=== PATIENT | female | born 1945 | race Caucasian/White ===

== ENCOUNTER 2016-12-07 15:32 | Emergency (ER) | payer OTHER ==
[~2016-12-07 15:32] MED LIST: ASPIR 8181 MG PO; ATENOLOL50 MG PO; CYCLOBENZAPRINE10 MG PO; DIOVAN40 MG PO; ESCITALOPRAM10 M1 PO; ESG PO; FAMOTIDINE20 MG PO; GLU5 PO; HUMULIN R100 U/1 M1 SC; LEVEMIR100 U/M1; LEVEMIR100 U/M1 SC; LEVOFLOXACIN750 M1 PO; LEXAPRO10 MG PO; LIPI10 PO; LOR PO; MAG PO; METFORMIN HCL1000 MG PO; MONTELUKAST SOD10 M1 PO; MORPHINE SULFAT15 MG PO; MYCLUD SS; MYLANTA II/MAAL30 M1 PO; NPHOS PO; PHE25I IV; VALSARTAN80 MG PO; ZES20 PO; ZOLPIDEM10 M1 PO
[2016-12-07 15:42] VITALS: BP 138/76
== END 2016-12-07 17:10 | disposition home or self-care (01) ==
LOC: ED 15:32
DX: K52.9 Noninfective gastroenteritis and colitis, unspecified (principal); E11.9 Type 2 diabetes mellitus without complications; Z88.0 Allergy status to penicillin; Z88.1 Allergy status to other antibiotic agents; Z88.8 Allergy status to other drugs, medicaments and biological substances

== ENCOUNTER 2017-10-11 15:41 | Inpatient (IN) | payer OTHER ==
[~2017-10-11] VITALS: Ht 152.4 cm; Wt 60.1 kg
[2017-10-11 15:55] VITALS: Ht 152.4 cm; Wt 60.1 kg
[2017-10-11 17:42] LABS: BASOPHIL % 0.6 % (0-2); PLATELET COUNT 207 x10^3mcL (130-400); RED CELL DISTRIBUTION WIDTH 13.1 % (11.5-14.5)
[2017-10-11 17:55] LABS: CALCIUM 8.1 mg/dL (8.5-10.1); CARBON DIOXIDE 25.3 mmol/L (21-32); CHLORIDE SERUM 106 mmol/L (98-107); CREATININE SERUM 1.2 mg/dL (0.6-1.0); GLUCOSE SERUM 90 mg/dL (74-106); POTASSIUM SERUM 5.4 mmol/L (3.5-5.1); SODIUM SERUM 137 mmol/L (136-145)
[2017-10-11 18:00] LABS: ALBUMIN 3.5 g/dL (3.4-5.0); ALKALINE PHOSPHATASE 69 U/L (46-116); ALT/SGPT 17 U/L (14-59); AST/SGOT 16 U/L (15-37); TOTAL PROTEIN, SERUM 6.3 g/dL (6.4-8.2)
[2017-10-11 18:02] LABS: CHOLESTEROL 81 mg/dL (<200)
[2017-10-11 18:25] LABS: microscopic required? YES; urine erythrocyte NEGATIVE (NEGATIVE)
[2017-10-11] MEDS ORDERED: NEU300 PO (18:52)
[2017-10-11 19:30] VITALS: BP 135/71
[2017-10-11 19:30] LABS: CHOLESTEROL/HDL RATIO 1.6; MAGNESIUM 1.7 mg/dL (1.8-2.4); PHOSPHOROUS 4.2 mg/dL (2.5-4.9)
[2017-10-11 19:36] LABS: T3 TOTAL 0.74 ng/mL
[2017-10-11 19:45] LABS: AMPHETAMINE QUAL UR NONE DETECTED (NEG <=1000)
[2017-10-11] MEDS ORDERED: LEVEMIR100 U/M1 SC (19:50)
[2017-10-11] MEDS ORDERED: GABAPENTIN600 M1 PO (19:51)
[2017-10-11 20:07] LABS: FREE T4 0.81 ng/dL (0.76-1.46); T4(THYROXINE) 4.9 ug/dL (4.7-13.3)
[2017-10-11 20:24] LABS: FREE THYROXINE INDEX 1.7 ug/dL (1.4-4.5)
[2017-10-11 20:46] LABS: IRON 76 ug/dL (50-170)
[2017-10-11 20:47] LABS: TOTAL IRON BINDING CAPACITY 233 ug/dL (250-450)
[2017-10-11 21:12] VITALS: BP 149/59
[2017-10-11 21:18] LABS: RED BLOOD CELLS 3.33 M/mm3 (4.10-5.10)
[2017-10-12 04:39] VITALS: BP 124/67
[2017-10-12 06:19] LABS: BASOPHIL % 0.8 % (0-2); PLATELET COUNT 182 x10^3mcL (130-400)
[2017-10-12 06:44] LABS: CALCIUM 7.9 mg/dL (8.5-10.1); CARBON DIOXIDE 26.7 mmol/L (21-32); CHLORIDE SERUM 105 mmol/L (98-107); CREATININE SERUM 1.1 mg/dL (0.6-1.0); GLUCOSE SERUM 206 mg/dL (74-106); MAGNESIUM 2.2 mg/dL (1.8-2.4); POTASSIUM SERUM 5.1 mmol/L (3.5-5.1); SODIUM SERUM 138 mmol/L (136-145)
[2017-10-12 09:11] VITALS: BP 134/70
[2017-10-12 13:16] VITALS: BP 134/86
[2017-10-12 17:20] VITALS: BP 151/76
[2017-10-12 20:48] VITALS: BP 123/54
[2017-10-13 06:42] VITALS: BP 141/79
[2017-10-13 08:14] LABS: BASOPHIL % 0.4 % (0-2); PLATELET COUNT 224 x10^3mcL (130-400); RED CELL DISTRIBUTION WIDTH 12.9 % (11.5-14.5)
[2017-10-13 08:37] LABS: CALCIUM 8.6 mg/dL (8.5-10.1); CARBON DIOXIDE 26.1 mmol/L (21-32); CHLORIDE SERUM 107 mmol/L (98-107); GLUCOSE SERUM 137 mg/dL (74-106); MAGNESIUM 1.8 mg/dL (1.8-2.4); PHOSPHOROUS 3.7 mg/dL (2.5-4.9); POTASSIUM SERUM 4.4 mmol/L (3.5-5.1); SODIUM SERUM 140 mmol/L (136-145)
[2017-10-13 09:30] VITALS: BP 116/66
[2017-10-13 12:54] VITALS: BP 160/84
[2017-10-13 16:59] VITALS: BP 153/91
[2017-10-13 21:15] VITALS: BP 158/96
[2017-10-14 06:04] VITALS: BP 134/91
[2017-10-14 06:28] LABS: BASOPHIL % 0.5 % (0-2); PLATELET COUNT 236 x10^3mcL (130-400); RED CELL DISTRIBUTION WIDTH 13.1 % (11.5-14.5)
[2017-10-14 06:46] LABS: CALCIUM 8.6 mg/dL (8.5-10.1); CARBON DIOXIDE 25.6 mmol/L (21-32); CHLORIDE SERUM 107 mmol/L (98-107); CREATININE SERUM 0.9 mg/dL (0.6-1.0); GLUCOSE SERUM 145 mg/dL (74-106); MAGNESIUM 1.6 mg/dL (1.8-2.4); PHOSPHOROUS 3.1 mg/dL (2.5-4.9); POTASSIUM SERUM 4.5 mmol/L (3.5-5.1); SODIUM SERUM 140 mmol/L (136-145)
[2017-10-14 09:11] VITALS: BP 172/90
[2017-10-14 12:26] VITALS: BP 150/81
[2017-10-14 17:44] VITALS: BP 136/92
[2017-10-14 21:23] VITALS: BP 156/90
[2017-10-15 05:20] VITALS: BP 123/70
[2017-10-15 06:34] LABS: CALCIUM 8.1 mg/dL (8.5-10.1); CHLORIDE SERUM 104 mmol/L (98-107); CREATININE SERUM 1.1 mg/dL (0.6-1.0); GLUCOSE SERUM 210 mg/dL (74-106); MAGNESIUM 1.7 mg/dL (1.8-2.4); POTASSIUM SERUM 4.3 mmol/L (3.5-5.1); SODIUM SERUM 136 mmol/L (136-145)
[2017-10-15 08:12] LABS: BASOPHIL % 0.5 % (0-2); PLATELET COUNT 215 x10^3mcL (130-400); RED CELL DISTRIBUTION WIDTH 13.2 % (11.5-14.5)
[2017-10-15 08:59] VITALS: BP 123/69
[2017-10-15] MEDS ORDERED: IMODIUM A-D2 M3 PO (10:54)
[2017-10-15 11:04] VITALS: BP 123/69
== END 2017-10-15 12:04 | disposition home or self-care (01) | DRG 73 ==
LOC: ED 15:41 → DU 18:44
PROVIDERS: Emergency Medicine; Family Medicine; Family Medicine Sports Medicine
DX: G90.8 Other disorders of autonomic nervous system (principal); N17.0 Acute kidney failure with tubular necrosis; N39.0 Urinary tract infection, site not specified; D64.9 Anemia, unspecified; E87.5 Hyperkalemia; K52.9 Noninfective gastroenteritis and colitis, unspecified; E83.42 Hypomagnesemia; E11.42 Type 2 diabetes mellitus with diabetic polyneuropathy; F41.9 Anxiety disorder, unspecified; Z98.51 Tubal ligation status; Z88.0 Allergy status to penicillin; Z88.8 Allergy status to other drugs, medicaments and biological substances; Z80.49 Family history of malignant neoplasm of other genital organs; Z80.0 Family history of malignant neoplasm of digestive organs; Z87.891 Personal history of nicotine dependence
CPT/HCPCS: 82962; 83880; 84439; 87046; 87046-59; 97110-GP; 97116-GP; 97530-GP; G0378; G0480; J1815; J1956; J3475; J7030; Q0092

== ENCOUNTER 2018-12-31 21:50 | Inpatient (IN) | payer OTHER ==
[~2018-12-31] VITALS: Ht 152.4 cm; Wt 55.0 kg
[~2018-12-31 21:50] MED LIST changes: +GABAPENTIN600 M1 PO; +IMODIUM A-D2 M3 PO; +NEU300 PO
--- NOTE | 2018-12-31 22:33 | NUR ---
EMT AT BEDSIDE FOR EKG
--- NOTE | 2018-12-31 22:52 | NUR ---
LAB AT BEDSIDE FOR BLOOD DRAW
[2018-12-31 23:12] LABS: BASOPHIL % 0.2 % (0-2); PLATELET COUNT 286 x10^3mcL (130-400); RED CELL DISTRIBUTION WIDTH 12.8 % (11.5-14.5)
[2018-12-31 23:15] LABS: CALCIUM 9.6 mg/dL (8.5-10.1); CARBON DIOXIDE 24.1 mmol/L (21-32); CHLORIDE SERUM 98 mmol/L (98-107); CREATININE SERUM 1.4 mg/dL (0.6-1.0); GLUCOSE SERUM 273 mg/dL (74-106); POTASSIUM SERUM 3.5 mmol/L (3.5-5.1); SODIUM SERUM 137 mmol/L (136-145)
[2018-12-31 23:29] LABS: ALBUMIN 4.2 g/dL (3.4-5.0); ALKALINE PHOSPHATASE 57 U/L (46-116); ALT/SGPT 19 U/L (14-59); AST/SGOT 19 U/L (15-37); BILIRUBIN TOTAL 0.9 mg/dL (0.20-1.00); TOTAL PROTEIN, SERUM 7.7 g/dL (6.4-8.2)
--- NOTE | 2018-12-31 23:48 | NUR ---
PT TAKEN TO RESTROOM ON WHEELCHAIR. PT EXPRESSED SHE WAS UNABLE TO URINATE AND UNABLE TO GIVE COLLECTION. PT PLACED BACK IN BED WITH FLUIDS STARTING. NO S/S OF DISTRESS
[2019-01-01] VITALS (9 sets, daily range): BP systolic 85–208; BP diastolic 46–93
[2019-01-01 01:26] LABS: microscopic required? YES; urine erythrocyte 1+ (NEGATIVE)
--- NOTE | 2019-01-01 01:26 | NUR ---
REPORT GIVEN TO MARISEL TO ASSUME CARE OF PT.
--- NOTE | 2019-01-01 01:50 | NUR ---
RECEIVED PT VIA BED, ACCOMPANIED BY NURSE, PT AAOX4 C/O NAUSEA. PT ON MED-SURG DENIES CP/PRESSURE AT THIS TIME. PALPABLE PULSES TO BLE, NO EDEMA NOTED. LUNG SOUNDS CTA ON RA, BREATHING EVEN AND UNLABORED. NO SIGNS OF RESP DISTRESS NOTED. ABD SOFT AND NONDISTENDED, ACTIVE BOWEL SOUNDS X4QUAD, STATED SHE'S BEEN HAVING WATERY STOOLS BUT SHE ONLY HAD ONE TIME TODAY, AND IT WAS LESS. VOIDS FREELY BRP, AMBULATORY, USES CANE AT HOME. SL TO LFA WITH BOARD SECURED WITH TAPE. NO SIGNS OF ACUTE DISTRESS NOTED. VS 208/93, HR 66, O2 99, TEMP 98. CALLED DR Metzger REGARDING PT BP, NEW ORDERS RECEIVED, AND PT PUT ON TELE#[id number]. BED AT LOWEST POSITION, CALL LIGHT WITHING REACH, WILL CONTINUE TO MOITOR.
--- NOTE | 2019-01-01 03:00 | NUR ---
LATEST BP CHECKED @ 195/87 MMHG,HR 64.HYDRALAZINE 10 MG IVP ADMINISTERED.DENIES CHESTPAIN.JELLO AND BEEF BROTH GIVEN AND WELL TOLERATED.NEW IV TO RFA STARTED.OLD IV TO LFA NOTED WITH SOME SWELLING AFTER FLUIDS INITIATED.WILL CONTINUE TO MONITOR.
--- NOTE | 2019-01-01 03:43 | NUR ---
LATEST BP RECHECKED AFTER HYDRALAZINE @ 159/86 MMHG,HR 90.WILL CONTINUE TO MONITOR.
--- NOTE | 2019-01-01 05:53 | NUR ---
CALLED DR. CLEVELAND AND REPORTED UA RESULT AND ALSO AWARE OF LATEST BP 187/86 MMHG.NEW ORDERS GIVEN AND WILL CARRY OUT.
--- NOTE | 2019-01-01 06:37 | NUR ---
PT AWAKE MOST OF THE NIGHT, STARTED TO COMPLAIN OF NAUSEA. IV SL TO RFA, SITE WNL. BREATHING EVEN AND UNLABORED ON RA, NO SIGNS OF RESP DISTRESS NOTED. MEDICATED FOR HIGH BP, WILL REASSESS BP. BED AT LOWEST POSITION, CALL LIGHT WITHING REACH. WILL ENDORSE CARE TO AM NURSE.
--- NOTE | 2019-01-01 06:53 | NUR ---
REASSESSED BP AFTER GIVEN MEDICATION PER DR ORDER. CURRENT BP 178/79, HR 66. WILL ENDORSE CARE TO AM NURSE.
--- NOTE | 2019-01-01 07:41 | NUR ---
RECEIVED PATIENT FROM KITTY JOINER. PATIENT IN BED, DENIES ANY PAIN. STATES SHE HAS MILD NAUSEA. NOTIFIED THAT PATIENTS BP IS ELEVATED AND PO CATAPRES FROM 0730 GIVEN. WILL RECHECK BP, DR CLEVELAND AWARE. WILL ALSO MONITOR FOR NAUSEA AND GIVE AM LANTUS SQ. CALL LIGHT IN REACH.
--- NOTE | 2019-01-01 10:06 | NUR ---
DR WALKER IN TO SPEAK WITH PATIENT ABOUT CONDITION AND TREATMENT PLAN. STATES PATIENT LIKELY TO STAY FURTHER FOR OBSERVATION AND PO MEDICATION TREATMENT. BP HAS DECREASED SIGNIFICANTLY TO 87/52 W NO SIGNS OF BOSCH DIZZINESS. SS PINK DRY & WARM. WILL CONTINUE TO MONITOR AND WILL PRINT OUT EDUCATION MATERIAL FOR PATIENT FOR GASTROPARESIS. CALL LIGHT IN REACH AT THIS TIME, DENIES NAUSEA.
--- NOTE | 2019-01-01 18:43 | NUR ---
PATIENT SEATED IN BED AT THIS TIME. NO COMPLAINTS OF NAUSEA OR VOMITTING. PATIENT ABLE TO TOLERATE FULL LIQUID DIET. HTN UNDER CONTROL AT THIS TIME. WILL ENDORSE TO ONCOMING NURSE. CALL LIGHT IN REACH AT THIS TIME.
--- NOTE | 2019-01-01 19:30 | NUR ---
RECEIVED REPORT FROM AM NURSE, PT SLEEPING IN BED. PT AAOX4, SLEEPY BUT ABLE TO FOLLOW COMMANDS AND MAKE NEEDS KNOWN. ON TELE# 32, DENIES CP/PRESSURE AT THIS TIME. PALPABLE PULSES TO BLE AND BUE, NO EDEMA NOTED. LUNGS SOUNDS CTA ON RA. BREATHING EVEN AND UNLABORED, NO SIGNS OF RESP DISTRESS NOTED. ABD SOFT AND FLAT, ACTIVE BOWEL SOUNDS X4 QUAD, DENIES N/V AT THIS TIME. VOIDS FREELY BRP. GENERALIZED WEAKNESS, ABLE TO AMBUALTE WITH MINIM ASSIST. NS RUNNING AT 100 ML/HR TO RFA, INFUSING WELL. SITE FREE FROM REDNESS AND SWELLING. BED AT LOWEST SETTING, CALL LIGHT WITHING REACH. WILL CONTINUE TO MONITOR.
--- NOTE | 2019-01-01 20:16 | NUR ---
SPOKE TO DR WALKER REGARDING PT CURRENT BP OF 85/46, NEW ORDERS GIVEN. WILL MEDICATE ACCORDINGLY.
--- NOTE | 2019-01-01 21:50 | NUR ---
PT BP REASSESED AFTER GIVING 1L NS BOLUS PER DR ORDER, CURRENT BP 96/48 MAP 71. NO SIGNS OF ACUTE DISTRESS NOTED, WILL CONTINUE TO MONITOR.
--- NOTE | 2019-01-02 01:10 | NUR ---
PT IN BED SLEEPING COMFORTABLY, BREATHING EVEN AND UNLBAORED. NO ACUTE DISTRESS NOTED. BED AT LOWEST SETTING, CALL LIGHT WITHING REACH. WILL CONTINUE TO MONITOR.
[2019-01-02 05:09] VITALS: BP 106/48
--- NOTE | 2019-01-02 06:28 | NUR ---
PT SLEPT WELL THROUGHOUT THE NIGHT. BREATHING EVEN AND UNLABORED ON RA. NO SIGNS OF ACUTE DISTRESS NOTED. ALL NEEDS ASSESSED AND ATTENDED TO. IV TO RFA RUNNING NS AT 100ML/HR, SITE WNL. BED AT LOWEST SETTING, CALL LIGHT WITHING REACH. WILL ENDORSE CARE TO AM NURSE.
--- NOTE | 2019-01-02 07:05 | NUR ---
RECEIVED BEDSIDE REPORT FORM HOTEL CONCIERGE NURSE. PATIENT IS STABLE, NO APPARENT SIGNS OF PAIN, SOB OR RESPIRATORY DISTRESS. PATIENT ON ROOM AIR. IV TO RFA IS INFUSING WELL, NO EDEMA OR ERYTHEMA NOTED AT SITE. PATIENT DENIES OTHER NEEDS AT THIS TIME. BED IN LOW POSITION, BED RAILS UP X2. CALL LIGHT WITHIN REACH. QUESTIONS AND CONCERNS ADDRESSED. SAFETY PRECAUTIONS IN PLACE.
--- NOTE | 2019-01-02 07:25 | NUR ---
PHYSICAL ASSESSMENT COMPLETED. PLEASE SEE PROBLEM FOCUSED CARE FOR DETAILS.
[2019-01-02 07:48] VITALS: BP 90/44
--- NOTE | 2019-01-02 08:09 | NUR ---
CALLED MD WALKER TO MAKE AWARE OF LOW BP 90/44 MAP 59 HR 67. AWARE, NO FUTHER ORDERS AT THIS TIME.
--- NOTE | 2019-01-02 09:15 | NUR ---
PATIENT IS STABLE, NO APPARENT SIGNS OF PAIN, SOB, OR RESPIRATORY DISTRESS. PATIENT DENIES N/V, OR DIZZINESS. PATIENT DENIES OTHER NEEDS AT THIS TIME. QUESTIONS AND CONCNERNS ADDRESSED. SAFETY PRECAUTIONS IN PLACE.
--- NOTE | 2019-01-02 11:08 | NUR ---
PATIENT IS STABLE, NO APPARENT SIGNS OF PAIN, SOB, OR RESPIRATORY DISTRESS. PATIENT DENIES N/V, OR DIZZINESS. PATIENT DENIES OTHER NEEDS AT THIS TIME. CALL LIGHT WITHIN REACH, BED IN LOW POSITION, BED RAILS UP X2. QUESTIONS AND CONCNERNS ADDRESSED. SAFETY PRECAUTIONS IN PLACE.
--- NOTE | 2019-01-02 11:47 | NUR ---
Initial Nutrition Assessment: 221T/A ENRIQUE SHETH HR Dx: intractable vomiting, lactic acidosis PMHx: DM, HTN, peripheral neuropathy, CKD PSHx: None Labs: (12/31) BG 273H, BUN 20H, CREAT 1.4H, WBC 12.6H Meds: D 50%, Humulin, lantus, Lopressor, reglan Diet: CCHO Full liquid (CHO 60g) PO Intake: (01/01) Dinner 70%, lunch 50% Ht: 152.4cm (60") Wt: 55 kg (121#) BMI: 23.7 kg/m2 Bed scale: 133# (possible error) IBW: 100# (45 kg) %IBW: 121 UBW: 138# Age: 73/F Food Allergies: NKFA Skin: intact Rob: 19 Edema: none GI: Last BM: 01/01 Trigger: N/V/D >3d Per H&P, Pt is a 73 F PMH DM, HTN, peripheral neuropathy, CKD, presents with nausea, vomiting and diarrhea for the past 4+ days. Patient reports her lose bowel movements have started to improve but has not been able to keep her food down and feels nauseated anytime she eats. She reports multiple episodes of this happening in the past. RDN Visit (01/02): Patient said that she ate cream of wheat this morning and her appetite is good. Patient said that she lost ~ 19# in 6 weeks unintentionally. Patient has questions regarding insulin and carbohydrate portions. Diabetes diet education was provided. Spoke with Dr. Boyle, and asked him to change the texture of the diet to mechanically soft as patient has forgotten her dentures at home. Dr. Boyle said that he can change the diet order only tomorrow. Problem with: N/V/D/C: no, pt hasn't had bowel movement since admission. (per patient) Problems with: Chewing/Swallowing: patient has forgotten dentures at home Current appetite: good Recent wt change: lost 19# in 6 weeks %wt change: 12 (significant) Vitamin/Supplement use: calcium Special diet at home: diabetic diet (not very strictly) Physical activity: walking Nutrition education given: Diabetes diet education was provided using [facility] handout on 'Type 2 Diabetes Nutrition Therapy'. Concepts like high fiber diet, label reading, types of carbohydrates and portion control were discussed. Patient verbalized understanding and did not have any questions at this time. Food-drug interactions: Humulin- diabetic meal plan to balance CHO w/insulin Education given: yes Estimated Nutritional Needs Based on actual body weight 55 kg Energy: 1228-3624 kcal/d (30-35 kcal/kg) - weight gain Protein: 55-66 g/d (1.0-1.2 g/kg)- geriatric maintenance Fluid: 1742-0482 ml/d (1 ml/kcal) or per doctor Nutrition Diagnosis 1. Unintentional weight loss related to poor appetite as evidenced by self- reported weight loss of ~ 19# x 6 weeks. Intervention 1. Recommend CCHO (Mechanically soft) diet as patient has forgotten her dentures. 2. Recommend ONS Glucerna BID for poor PO/ unintentional weight loss. Monitor/Evaluate Goal: PO intake at least 75% of estimated needs Monitor: PO intake, Labs, GI function F/U in 3-5 days as moderate risk 7/8-10
--- NOTE | 2019-01-02 11:47 | NUR ---
1. Recommend CCHO (Mechanically soft) diet as patient has forgotten her dentures. 2. Recommend ONS Glucerna BID for poor PO/ unintentional weight loss.
--- NOTE | 2019-01-02 12:08 | NUR ---
ADMINISTERED MEDICATION PER EMAR. PATIENT EDUCATED ON NEED FOR MEDICATION WELL ADVERSE EFFECTS TO REPORT. PATIENT VERBALIZED INDERSTANDING. QUESTIONS AND CONCERNS ADDRESSED. SAFETY PRECAUTIONS IN PLACE.
[2019-01-02 12:37] VITALS: BP 139/70
--- NOTE | 2019-01-02 15:12 | NUR ---
ADMINISTERED MEDICATION PER EMAR. PATIENT IS STABLE. C/O PAIN TO THE BACK. DENIES CHEST PAIN, SOB, OR RESPIRATORY DISTRESS. QUESTIONS AND CONCERNS ADDRESSED. SAFETY PRECAUTIONS IN PLACE.
[2019-01-02 16:30] VITALS: BP 129/64
--- NOTE | 2019-01-02 16:48 | NUR ---
ADMINISTERED GLUCOSE CHECK, PATIENT TOLRATED WELL. PATIENT DENIES OTHER NEEDS AT THIS TIME. QUESTIONS AND CONCERNS ADDRESSED. SAFETY PRECAUTIONS IN PLACE.
--- NOTE | 2019-01-02 18:08 | NUR ---
PATIENTIS STABLE NO APPARENT SIGNS OF PAIN, SOB, OR RESPIRATORY DISTRESS. PATIENT IS ON ROOM AIR. SITTING COMFORTABLY IN BED SIDE CHAIR. COMPLAINS OF BACK PAIN. ADMINISTERED MEDICATION PER EMAR. ALSO USED REPOSITIONING, STRETCHING AND MASSAGE TO RELIEVE PAIN. PATIENT IS SALINE LOCKED. IV TO THE RIGHT FOREARM IS PATENT FLUSHES WELL. NO EDEMA OR ERYTHEMA NOTEED AT SITE. CALL LIGHT WITHIN REACH, BED IN LOW POSITION, QUESTIONS AND CONCERNS ADDRESSED. SAFETY PRECAUTIONS IN PLACE. PATIENT DENIES OTHER NEEDS AT THIS TIME. WILL ENDORSE CARE TO BELL MAKER NURSE.
--- NOTE | 2019-01-02 19:15 | NUR ---
RECEIVED PT FROM DAY SHIFT RN. PT IS ALERT AND ORIENTED TO PERSON PLACE AND TIME AND ABLE TO FOLLOW COMMANDS. FAMILY CURRENTLY AT THE BEDSIDE. PT DENIES CHEST PAIN OR SHORTNESS OF BREATH. BREATHING IS EVEN AND UNLABORED. BOWEL SOUNDS ARE ACTIVE. PT DENIES NAUSEAU OR VOMITTING. PT CURRENTLY COMPLAINING OF BACK PAIN. WILL MEDICATE PER ORDER. PT IS AMBULATORY. THERE IS AN RFA IV THAT IS CLEAN DRY AND INTACT AT THIS TIME. TELE MONITOR IS IN PLACE. SAFETY MEASURES ARE IN PLACE. CALL LIGHT IS WITHIN REACH. BED IN LOWEST POSITION. WILL CONTINUE TO MONITOR.
--- NOTE | 2019-01-02 19:25 | NUR ---
ENDORSED CARE TO SUPERINTENDENT GAS DISTRIBUTION NURSE CHALO.
[2019-01-02 21:31] VITALS: BP 142/69
[2019-01-03 05:18] VITALS: BP 143/71
--- NOTE | 2019-01-03 05:28 | NUR ---
PT SLEPT THROUGHOUT THE NIGHT. COMPLAINT OF BACK PAIN MEDICATED PER ORDER (SEE MAR). NO SIGNIFICANT CHANGES NOTED THROUGHOUT THE SHIFT. PT DENIES SHORTNESS OF BREATH OR CHEST PAIN AT THIS TIME. SAFETY MEASURES ARE IN PLACE. CALL LIGHT IS WITHIN REACH. WILL ENDORSE TO DAY SHIFT RN.
[2019-01-03 06:03] LABS: BASOPHIL % 0.5 % (0-2); PLATELET COUNT 180 x10^3mcL (130-400); RED CELL DISTRIBUTION WIDTH 13.3 % (11.5-14.5)
[2019-01-03 06:27] LABS: ALKALINE PHOSPHATASE 59 U/L (46-116); ALT/SGPT 25 U/L (14-59); AST/SGOT 30 U/L (15-37); BILIRUBIN TOTAL 0.3 mg/dL (0.20-1.00); CALCIUM 7.7 mg/dL (8.5-10.1); CHLORIDE SERUM 106 mmol/L (98-107); CREATININE SERUM 1.3 mg/dL (0.6-1.0); GLUCOSE SERUM 223 mg/dL (74-106); MAGNESIUM 1.2 mg/dL (1.8-2.4); POTASSIUM SERUM 4.4 mmol/L (3.5-5.1); SODIUM SERUM 140 mmol/L (136-145)
[2019-01-03 06:28] LABS: ALBUMIN 3.1 g/dL (3.4-5.0); TOTAL PROTEIN, SERUM 5.6 g/dL (6.4-8.2)
--- NOTE | 2019-01-03 07:05 | NUR ---
RECEIVED BEDSIDE REPORT FROM DIRECT MAIL MANAGER NURSE CHALO. PATIENT IS STABLE NO APPARENT SIGNS OF PAIN, SOB, OR RESPIRATORY DISTRESS. ON ROOM AIR. RESTING COMFORTABLY IN BED. PATIENT DENIES NEEDS AT THIS TIME. CALL LIGHT WITHIN REACH. BED IN LOW POSITION, BED RAILS UP X2. QUESTIONS AND CONCERNS ADDRESSED. SAFETY PRECAUTIONS IN PLACE.
--- NOTE | 2019-01-03 07:17 | NUR ---
RECEIVED BEDSIDE REPORT FROM CLINICAL NURSING INTERN NURSE CHALO. PATIENT IS STABLE NO APPARENT SIGNS OF PAIN, SOB, OR RESPIRATORY DISTRESS. ON ROOM AIR. RESTING COMFORTABLY IN BED. PATIENT DENIES NEEDS AT THIS TIME. CALL LIGHT WITHIN REACH. BED IN LOW POSITION, BED RAILS UP X2. QUESTIONS AND CONCERNS ADDRESSED. SAFETY PRECAUTIONS IN PLACE.
[2019-01-03 08:21] VITALS: BP 115/54
--- NOTE | 2019-01-03 09:29 | NUR ---
ADMINISTERED MEDICATION PER EMAR. PATIENT EDUCATED ON THE NEED FOR MEDICATION AND ADVERSE EFFECTS TO REPORT. PATIENT VERBALIZED UNDERSTANDING. CALL LIGHT WITHIN REACH BED IN LOW POSITION. PATIENT DENIES OTHER NEEDS AT THIS TIME. SAFETY PRECAUTIONS IN PLACE.
--- NOTE | 2019-01-03 10:57 | NUR ---
PATIENT C/O SEVERE BACK PAIN. ADMINISTERED MEDCATION PER EMAR. PATIENT EDUCATED ON NEED FOR MEDICATION AND ADVERSE EFFECTS TO RESPORT. PATIENT VERBALIZED UNDERSTANDING. QUESTIONS AND CONCERNS ADDRESSED. SAFETY PRECAUTIONS IN [place].
--- NOTE | 2019-01-03 11:59 | NUR ---
ADMINISTERED MEDCATION PER EMAR. PATIENT EDUCATED ON NEED FOR MEDICATION AND ADVERSE EFFECTS TO RESPORT. PATIENT VERBALIZED UNDERSTANDING. QUESTIONS AND CONCERNS ADDRESSED. SAFETY PRECAUTIONS IN [place].
--- NOTE | 2019-01-03 12:25 | NUR ---
SPOKE WITH MD REGARDING PATIENTS CONDITION AND MEDICATION. MD WILL MODIFY MEDS IN EMAR.
[2019-01-03 12:29] VITALS: BP 144/75
--- NOTE | 2019-01-03 14:35 | NUR ---
PATIENT IS STABLE NO APPARENT SIGNS OF PAIN SOB OR RESPIRATORY DISTRESS. PATIENT ON ROOM AIR. PATIENT DENIES OTHER NEEDS AT THIS TIME. QUESTIONS AND CONCERNS ADDRESSED. SAFETY PRECAUTIONS IN PLACE. CALL LIGHT WITHIN REACH.
--- NOTE | 2019-01-03 16:26 | NUR ---
ADMINISTERED MEDCATION PER EMAR. PATIENT EDUCATED ON NEED FOR MEDICATION AND ADVERSE EFFECTS TO RESPORT. PATIENT VERBALIZED UNDERSTANDING. QUESTIONS AND CONCERNS ADDRESSED. SAFETY PRECAUTIONS IN [place]. RECEIVED ORDERS TO TRANSFER PATIENT FROM TELE TO [facility]. TELE REMOVED AND RETURNED.
--- NOTE | 2019-01-03 16:48 | NUR ---
PAGED DR BAZZI TO MAKE AWARE OF LAB VALUES FOR MAGNESIUM AND CALCIUM. WAITING FOR MD TO CALL BACK.
[2019-01-03 17:44] VITALS: BP 152/77
--- NOTE | 2019-01-03 18:03 | NUR ---
IV TO RIGHT FA INFILTRATED. AND STARTED TO LEAK. IV DISCONTINUED. IV STARTED TO LEFT FOREARM. IV FLUSHES WELL.
--- NOTE | 2019-01-03 18:42 | NUR ---
PATIENT IS STABLE NO APPARENT SIGNS OF PAIN, SOB, OR RESPIRATORY DISTRESS NOTED. PATIENT IS RESTING COMFORTABLY IN BED. ON ROOM AIR. IV TO RIGHT FA IS INFUSING MAGNISIUM SULFATE PIGGIBACK. NO EDEMA OR ERYTHEMA NOTED TO SITE. CALL LIGHT WITHIN REACH. BED IN LOW POSITION. SCD'S IN PLACE. QUESTIONS AND CONCERNS ADDRESSED. SAFETY PRECAUTIONS IN PLACE. WILL ENDORSE CARE TO BODILY INJURY ADJUSTER NURSE.
--- NOTE | 2019-01-03 19:15 | NUR ---
RECEIVED PT FROM DAY SHIFT RN. PT IS ALERT AND ORIENTED X4 AND ABLE TO FOLLOW COMMANDS. PT DENIES CHEST PAIN OR SHORTNESS OF BREATH ON ROOM AIR AT THIS TIME. THERE ARE NO USE OF ACCESSORY MUSCLES OR LABORED BREATHING ON ASSESSMENT. PT STATED THAT SHE HAS BEEN HAVING FREQUENT STOOLS AND THAT THEY ARE COMING OFTEN. PT DENIES ABD PAIN WITH STOOLS. BOWEL SOUNDS ARE ACTIVE. PT IS AMBULATROY WITH ASSIST. SHE STATES THAT SHE WILL CALL IF SHE NEEDS HELP TO THE RESTROOM. DENIES PAIN IN GENERAL AT THIS TIME. MG SULFATE IS RUNNING THROUGH HER RFA IV THAT IS CLEAN DRY AND INTACT AT THIS TIME. PT TOLERATING WELL. SAFETY MEASURES ARE IN PLACE. BED IN LOWEST POSITION. CALL LIGHT WITHIN REACH. WILL CONTINUE TO MONITOR.
[2019-01-03 20:28] VITALS: BP 133/67
--- NOTE | 2019-01-04 01:50 | NUR ---
PT SLEEPING IN BED. BREATHING EVEN NO USE OF ACCESSORY MUSCLES OR LABORED BREATHING. CALL LIGHT WITHIN REACH.
[2019-01-04 05:07] VITALS: BP 129/67
--- NOTE | 2019-01-04 05:11 | NUR ---
PT SLEPT THROUGHOUT THE NIGHT. NO COMPLAINTS OF CHEST PAIN ABD PAIN OR SOB. NO SIGNIFICANT CHANGES NOTED.
--- NOTE | 2019-01-04 05:57 | NUR ---
PT BG 83 GAVE BENEDICTO CRAKCERS AND ORANGE JUICE TO PREVENT HYPOGLYCEMIA
[2019-01-04 06:04] LABS: BASOPHIL % 0.6 % (0-2); PLATELET COUNT 181 x10^3mcL (130-400); RED CELL DISTRIBUTION WIDTH 13.2 % (11.5-14.5)
[2019-01-04 06:19] LABS: CALCIUM 8.4 mg/dL (8.5-10.1); CARBON DIOXIDE 22.7 mmol/L (21-32); CHLORIDE SERUM 108 mmol/L (98-107); CREATININE SERUM 1.1 mg/dL (0.6-1.0); GLUCOSE SERUM 76 mg/dL (74-106); MAGNESIUM 1.9 mg/dL (1.8-2.4); POTASSIUM SERUM 4.2 mmol/L (3.5-5.1); SODIUM SERUM 141 mmol/L (136-145)
--- NOTE | 2019-01-04 07:45 | NUR ---
PATIENT RESTING IN BED, NO ACUTE DISTRESS NOTED. PATIENT DENIES NAUSEA AND VOMITING. PATIENT C/O OF PREVIOUS STOOLS LOOSE. PATIENT C/O PAIN 11/07, REPOSITION PATIENT FOR COMFORT, EDUCATED PATIENT ON PAIN MANAGEMENT. WILL MEDICATE PATIENT WITH MORPHINE PO SCHEDULED. PATIENT IS AMBULATORY WITH ASSISTANCE. IV TO RFA SALINE LOCK, NO S/S OF INFILTRATION. CALL LIGHT WITHIN REACH, BED IN LOW POSITION. WILLL CONTINUE TO MONITOR.
[2019-01-04 09:13] VITALS: BP 134/66
--- NOTE | 2019-01-04 13:20 | NUR ---
PATIENT IS SITTING UP IN BED EATING, NO ACUTE DISTRESS NOTED. PATIENT TOLERATING CCHO DIET. DENIES NAUSEA/VOMITING. PATIENT DENIES PAIN AT THIS TIME. CALL LIGHT WITHIN REACH, BED IN LOW POSITION, WILL CONTINUE TO MONITOR.
[2019-01-04] MEDS ORDERED: REG10 PO (13:29)
[2019-01-04] MEDS ORDERED: MAC50 PO (13:36)
--- NOTE | 2019-01-04 16:51 | NUR ---
RECEIVED TELEPHONE CALL FROM WILLA CM- PATIENTS HOME HEALTH AGENCY IS [facility] AND WILL CALL PATIENT DIRECTLY TO SET UP AN APPOINTMENT FOR POSSIBLY SATURDAY OR SATURDAY. PRIMARY NURSE AWARE.
[2019-01-04 18:03] VITALS: BP 95/55
[2019-01-04 18:21] VITALS: BP 104/54
--- NOTE | 2019-01-04 18:45 | NUR ---
PATIENT IS RESTING IN BED, NO ACUTE DISTRESS NOTED. PATIENT IS STABLE, NO ACUTE CHANGES THROUGH OUT SHIFT. PATIENT DENIES PAIN AT THIS TIME. PATIENT RECEIVED COPY OF D/C INSTRUCTIONS. PATIENT UNDERSTANDS AND AGREES WITH POC & INSTRUCTIONS, INCLUDING FOLLOW UP WITH PCP & MEDICATIONS. PATIENT IS AWARE [facility] WILL FOLLOW UP WITH PATIENT. ALL QUESTIONS AND CONCERNS ADDRESSED. IV TO RIGHT ARM REMOVED, CATH INTACT. ARMBANDS REMOVED.
--- NOTE | 2019-01-04 19:19 | NUR ---
PATIENT WAS DISCHARGE HOME AT THIS TIME. PATIENT TAKEN DOWN VIA WHEELCHAIR BY FURRIER DESIGNER.
== END 2019-01-04 19:19 | disposition home health service (06) | DRG 73 ==
LOC: ED 21:50 → MU 01-01 01:00 → DU 01-01 01:00 → MU 01-01 01:34 → DU 01-01 01:37 → MU 01-01 01:56 → DU 01-01 02:09 → MU 01-03 16:19
PROVIDERS: Emergency Medicine; Internal Medicine Pulmonary Disease; ADMIT Internal Medicine Pulmonary Disease
DX: E11.43 Type 2 diabetes mellitus with diabetic autonomic (poly)neuropathy (principal); N17.0 Acute kidney failure with tubular necrosis; N39.0 Urinary tract infection, site not specified; K31.84 Gastroparesis; I10 Essential (primary) hypertension; E86.0 Dehydration; A08.4 Viral intestinal infection, unspecified; B96.29 Other Escherichia coli [E. coli] as the cause of diseases classified elsewhere; Z79.4 Long term (current) use of insulin; Z79.84 Long term (current) use of oral hypoglycemic drugs
CPT/HCPCS: 82962; 83880; 84439; C9113; G0378; G0480; J0360; J1815; J2270; J2405; J2765; J3475; J7030; J8597

== ENCOUNTER 2019-04-02 17:57 | Inpatient (IN) | payer OTHER ==
[~2019-04-02] VITALS: Ht 162.6 cm; Wt 45.4 kg
[~2019-04-02 17:57] MED LIST changes: +MAC50 PO; +REG10 PO
[2019-04-02 18:30] VITALS: Ht 162.6 cm; Wt 45.4 kg
[2019-04-02 19:49] LABS: BASOPHIL % 0.3 % (0-2); PLATELET COUNT 287 x10^3mcL (130-400); RED CELL DISTRIBUTION WIDTH 12.7 % (11.5-14.5)
[2019-04-02 19:52] LABS: CALCIUM 8.6 mg/dL (8.5-10.1); CARBON DIOXIDE 27.3 mmol/L (21-32); CHLORIDE SERUM 92 mmol/L (98-107); CREATININE SERUM 2.8 mg/dL (0.6-1.0); GLUCOSE SERUM 91 mg/dL (74-106); POTASSIUM SERUM 3.1 mmol/L (3.5-5.1); SODIUM SERUM 132 mmol/L (136-145)
[2019-04-02 19:57] LABS: ALKALINE PHOSPHATASE 108 U/L (46-116); ALT/SGPT 19 U/L (14-59); AST/SGOT 27 U/L (15-37); BILIRUBIN TOTAL 0.3 mg/dL (0.20-1.00); LIPASE 20 IU/L (73-393); TOTAL PROTEIN, SERUM 6.9 g/dL (6.4-8.2)
[2019-04-03 01:28] VITALS: BP 111/69
[2019-04-03 04:47] VITALS: BP 99/49
[2019-04-03 08:40] VITALS: BP 116/47
[2019-04-03 11:58] LABS: UA SPECIFIC GRAVITY 1.025 (1.005-1.035); microscopic required? YES; urine erythrocyte 1+ (NEGATIVE)
[2019-04-03 12:37] LABS: BASOPHIL % 0.2 % (0-2); PLATELET COUNT 275 x10^3mcL (130-400); RED CELL DISTRIBUTION WIDTH 12.9 % (11.5-14.5)
[2019-04-03 12:53] LABS: CALCIUM 8.2 mg/dL (8.5-10.1); CARBON DIOXIDE 25.2 mmol/L (21-32); CHLORIDE SERUM 97 mmol/L (98-107); CREATININE SERUM 2.2 mg/dL (0.6-1.0); GLUCOSE SERUM 258 mg/dL (74-106); POTASSIUM SERUM 4.4 mmol/L (3.5-5.1); SODIUM SERUM 132 mmol/L (136-145)
[2019-04-03 12:55] VITALS: BP 120/58
[2019-04-03 12:57] LABS: MAGNESIUM 1.9 mg/dL (1.8-2.4); PHOSPHOROUS 3.8 mg/dL (2.5-4.9)
[2019-04-03 16:50] VITALS: BP 126/52
[2019-04-03 22:26] VITALS: BP 110/56
[2019-04-04 00:59] LABS: BASOPHIL % 0.5 % (0-2); PLATELET COUNT 285 x10^3mcL (130-400); RED CELL DISTRIBUTION WIDTH 12.6 % (11.5-14.5)
[2019-04-04 02:11] LABS: CALCIUM 8.2 mg/dL (8.5-10.1); CARBON DIOXIDE 22.3 mmol/L (21-32); CHLORIDE SERUM 102 mmol/L (98-107); CREATININE SERUM 1.7 mg/dL (0.6-1.0); POTASSIUM SERUM 4.6 mmol/L (3.5-5.1); SODIUM SERUM 139 mmol/L (136-145)
[2019-04-04 02:27] LABS: GLUCOSE SERUM 58 mg/dL (74-106)
[2019-04-04 06:21] LABS: BASOPHIL % 0.4 % (0-2); PLATELET COUNT 302 x10^3mcL (130-400); RED CELL DISTRIBUTION WIDTH 12.8 % (11.5-14.5)
[2019-04-04 06:40] LABS: MAGNESIUM 1.7 mg/dL (1.8-2.4); PHOSPHOROUS 3.3 mg/dL (2.5-4.9)
[2019-04-04 07:02] VITALS: BP 101/45
[2019-04-04 09:03] VITALS: BP 105/48
[2019-04-04 13:31] VITALS: BP 140/52
[2019-04-04 16:06] VITALS: BP 104/46
[2019-04-04 20:55] VITALS: BP 91/40
[2019-04-05 05:45] VITALS: BP 124/62
[2019-04-05 06:18] LABS: BASOPHIL % 0.3 % (0-2); PLATELET COUNT 253 x10^3mcL (130-400)
[2019-04-05 07:03] LABS: CALCIUM 7.8 mg/dL (8.5-10.1); CARBON DIOXIDE 21.4 mmol/L (21-32); CHLORIDE SERUM 104 mmol/L (98-107); CREATININE SERUM 1.4 mg/dL (0.6-1.0); GLUCOSE SERUM 237 mg/dL (74-106); POTASSIUM SERUM 4.7 mmol/L (3.5-5.1); SODIUM SERUM 134 mmol/L (136-145)
[2019-04-05] MEDS ORDERED: PROTONIX20 MG PO (09:23)
[2019-04-05 09:41] VITALS: BP 116/58
[2019-04-05 10:09] VITALS: BP 116/58
== END 2019-04-05 10:54 | disposition home or self-care (01) | DRG 391 ==
LOC: ED 17:57 → DU 23:26
PROVIDERS: Emergency Medicine; Internal Medicine Nephrology; Internal Medicine Pulmonary Disease; ADMIT Internal Medicine Pulmonary Disease
PROC: 0DB98ZX Excision of Duodenum, Via Natural or Artificial Opening Endoscopic, Diagnostic (ICD-10-PCS; principal; 2019-04-02)
PROC: 0DB68ZX Excision of Stomach, Via Natural or Artificial Opening Endoscopic, Diagnostic (ICD-10-PCS; 2019-04-02)
PROC: 0DB48ZX Excision of Esophagogastric Junction, Via Natural or Artificial Opening Endoscopic, Diagnostic (ICD-10-PCS; 2019-04-02)
PROC: 0DJD8ZZ Inspection of Lower Intestinal Tract, Via Natural or Artificial Opening Endoscopic (ICD-10-PCS; 2019-04-02)
DX: K29.70 Gastritis, unspecified, without bleeding (principal); K22.11 Ulcer of esophagus with bleeding; N17.9 Acute kidney failure, unspecified; N39.0 Urinary tract infection, site not specified; Z68.1 Body mass index [BMI] 19.9 or less, adult; K29.80 Duodenitis without bleeding; K44.9 Diaphragmatic hernia without obstruction or gangrene; E83.42 Hypomagnesemia; E83.51 Hypocalcemia; D50.0 Iron deficiency anemia secondary to blood loss (chronic); E11.9 Type 2 diabetes mellitus without complications; I12.9 Hypertensive chronic kidney disease with stage 1 through stage 4 chronic kidney disease, or unspecified chronic kidney disease; N18.9 Chronic kidney disease, unspecified
CPT/HCPCS: 43235; 45378; 82962; 90658; 97116-GP; G0378; J1200; J1610; J2250; J2310; J2765; J3010; J3475; J3480; J3490; J7030; P9047

== ENCOUNTER 2019-04-07 17:44 | Inpatient (IN) | payer OTHER ==
[~2019-04-07] VITALS: Ht 162.6 cm; Wt 56.2 kg
[~2019-04-07 17:44] MED LIST changes: +PROTONIX20 MG PO
[2019-04-07 17:52] VITALS: Ht 162.6 cm; Wt 56.2 kg
--- NOTE | 2019-04-07 18:03 | NUR ---
PT TAKEN TO BED 8
--- NOTE | 2019-04-07 18:14 | NUR ---
PLACED IN BED 5 FOR EVAL.
--- NOTE | 2019-04-07 18:41 | NUR ---
PT TO ED FOR EVAL OF NAUSEA, VOMITING, AND DIARRHEA. PT STATES SHE WAS AN INPATIENT FOR NAUSEA, VOMITING AND DIARRHEA AND DISCHARED 3 DAYS AGO. PT STATES AT DISCHARGE SHE WAS NOT WELL AND HAD VOMITING AND DIARRHEA. VOMITING AND DIARRHEA HAS CONTINUED. PT ADMITS TO NOT USING HER INSULIN DUE TO NOT EATING RELATED TO CONTINUED NAUSEA AND VOMITING, AND DIARRHEA. PT TO ROOM 5. IV STARTED TO R ROBER. DR. DILL AT BEDSIDE FOR MSE.
--- NOTE | 2019-04-07 19:26 | NUR ---
PT MEDICATED PER MD ORDER. PT VERBALIZED UNDERSTANDING OF MEDICATIONS PRIOR TO ADMINISTRATION.
[2019-04-07 19:48] LABS: BASOPHIL % 0.2 % (0-2); PLATELET COUNT 342 x10^3mcL (130-400); RED CELL DISTRIBUTION WIDTH 12.6 % (11.5-14.5)
[2019-04-07 19:54] LABS: ALKALINE PHOSPHATASE 88 U/L (46-116); ALT/SGPT 12 U/L (14-59); AST/SGOT 12 U/L (15-37); BILIRUBIN TOTAL 0.8 mg/dL (0.20-1.00); CALCIUM 8.2 mg/dL (8.5-10.1); CHLORIDE SERUM 88 mmol/L (98-107); CREATININE SERUM 1.4 mg/dL (0.6-1.0); LIPASE 24 IU/L (73-393); POTASSIUM SERUM 3.1 mmol/L (3.5-5.1); SODIUM SERUM 130 mmol/L (136-145)
[2019-04-07 19:55] LABS: ALBUMIN 3.2 g/dL (3.4-5.0)
[2019-04-07 19:56] LABS: GLUCOSE SERUM 494 mg/dL (74-106)
[2019-04-07 21:24] LABS: UA SPECIFIC GRAVITY <=1.005 (1.005-1.035); microscopic required? YES; urine erythrocyte NEGATIVE (NEGATIVE)
--- NOTE | 2019-04-07 21:45 | NUR ---
PT MEDICATED PER MD ORDER. PT VERBALIZED UNDERSTANDING OF MEDICATIONS PRIOR TO ADMINISTRATION.
--- NOTE | 2019-04-07 21:51 | NUR ---
PT RESTING IN GURNEY, CALL LIGHT IN REACH. AWAKE, ALERT, SPEAKING IN FULL CLEAR SENTENCES. RESP E/U, NAD NOTED.
--- NOTE | 2019-04-07 23:25 | NUR ---
SPOKE WITH [place]NE, CASE MANAGEMENT WITH [facility]. GAVE HER CLINICALS AND UPDATES.
--- NOTE | 2019-04-08 00:01 | NUR ---
PT MEDICATED PER MD ORDER. PT VERBALIZED UNDERSTANDING OF MEDICATIONS PRIOR TO ADMINISTRATION. PT IS AWAKE, AAOX4, RESP E/U, NAD NOTED.
[2019-04-08] MEDS ORDERED: CALCIUM 600600 M3 PO (00:34)
[2019-04-08] MEDS ORDERED: BACLOFEN10 MG PO (00:34)
[2019-04-08] MEDS ORDERED: LEVOFLOXACIN500 M1 PO (00:35)
[2019-04-08] MEDS ORDERED: PROTONIX20 MG PO (00:36)
--- NOTE | 2019-04-08 00:36 | NUR ---
PT REQUESTING ANTI-NAUSEA MEDICATION. MADE AWARE.
--- NOTE | 2019-04-08 01:01 | NUR ---
PT CONTINUING TO COMPLAIN OF BURNING DISCOMFORT AT RIGHT HAND IV SITE. NO SIGNS OF INFILTRATION NOTED. NEW IV STARTED. WILL CONTINUE TO MONITOR.
--- NOTE | 2019-04-08 01:15 | NUR ---
REPORT CALLED TO DIRECTOR OF GRANTS KRIS TO ASSUME CARE FOR PT.
--- NOTE | 2019-04-08 01:34 | NUR ---
IV TO LEFT AC NOTED TO BE INFILTRATED, SWELLING AND COOL TO TOUCH NOTED. ALL FLUID ADMINISTRATION STOPPED, IV D/C'D, ANGIOCATH INTACT, WARM COMPRESS IN PLACE. CHARGE NURSE MADE AWARE OF NEED TO INITIATE ANOTHER IV PRIOR TO TRANSFER TO MED SURG FLOOR.
--- NOTE | 2019-04-08 02:07 | NUR ---
REMOVED IV FROM RIGHT HAND PER PT REQUEST, SINCE PT HAS IV ACCESS TO [facility].
--- NOTE | 2019-04-08 02:09 | NUR ---
PT TRANSFERRED TO MED/SURG BED 243B VIA GURNEY BY EMT RAFA WITH REMAINDER OF POTASSIUM TO BE INFUSED. PT A&OX4, SPEECH IS CLEAR AND APPROPRIATE, NO DSITRESS NOTED, DENIESH AVING PAIN AT THIS TIME. PT TRANSFERRED WITHOUT INCIDENCE.
[2019-04-08 02:48] VITALS: BP 131/69
--- NOTE | 2019-04-08 02:59 | NUR ---
RECEIVED PT FROM ER, PT ADMIT FOR ABD PAIN, VOMITING, DM OUT OF CONTROL, PT IS A/O X4, VERBAL RESPONSIVE, LUNG SOUND CLEAR BILATERAL, NO COUGH, NO SOB, PT DENY ANY CHEST PAIN OR DISCOMFORT. BOWEL SOUND PRESENT ALL 4 QUADRANTS, NO DISTENTION, PT C/O HAD N/V/D SINCE LAST VISIT. SOME TIME VOMITING BLOOD AND BLOODY STOOL. PEDAL PULSE PRESENT BOTH FEET,NO EDEMA, IV AT RIGHT AC, NO LEAKING, NO INFILTRATION. ALL ADLS ASSIST, ALL NEED MET, CALL LIGHT IN REACH, WILL CONTINUE TO MONITOR.
--- NOTE | 2019-04-08 03:12 | NUR ---
IV POTASSIUM RIDER FROM ER TRANSFUSION ALMOST COMPLETED. TRANSFUSION DECREASED FOR PT. TO TOLERATE W/OUT BURNING AND PAIN. SITE REMAINS INTACT. CALL LIGHT WITHIN REACH.
[2019-04-08 04:52] VITALS: BP 110/66
--- NOTE | 2019-04-08 07:05 | NUR ---
RECEIVED PT FROM NIGHT NURSE. PT IS LAYING DOWN WITH HOB UP RESTING. PT LOOKS TO BE IN NO ACUTE DISTRESS AT THIS TIME AND DENIES ANY PAIN. IV SITE PATENT WITH NO SIGNS OF ERYTHEMA OR SWELLING. RESPIRATIONS EVEN AND UNLABORED ON ROOM AIR. CALL LIGHT WITHIN REACH. WILL CONTINUE TO MONITOR.
--- NOTE | 2019-04-08 07:55 | NUR ---
PT IS SITTING ON BEDSIDE COMMODE WITH SYSTEMS INTEGRATION ENGINEER AT BEDSIDE. IV SITE APPEARS TO HAVE SWELLING AND IS LEAKING FROM SITE, IV FLUSHING FREELY, PT DENIES ANY PAIN. WILL CHANGE IV DRESSING AND ASSESS FOR NEED OF NEW IV.
[2019-04-08 09:16] VITALS: BP 148/81
--- NOTE | 2019-04-08 15:11 | NUR ---
PT'S SON, KO CALLED FOR AN UPDATE. INFORMED FAMILY MEMBER OF PT STATUS, FAMILY MEMBER REQUESTING TO SPEAK WITH PT. TRANSFERED FAMILY MEMBER TO PT'S ROOM. PT TALKING WITH FAMILY MEMBER AT THIS TIME. WILL CONTINUE TO MONITOR.
--- NOTE | 2019-04-08 15:55 | NUR ---
PT COMPLAINING OF FEELING NAUSEATED AT THIS TIME. PT DENIES ANY VOMITING AT THIS TIME. WILL MEDICATE ACCORDING TO EMAR
[2019-04-08 17:42] VITALS: BP 180/80
--- NOTE | 2019-04-08 18:15 | NUR ---
PT IS LAYING DOWN IN BED WITH HOB UP WATCHING TV. PT LOOKS TO BE IN NO ACUTE DISTRESS AT THIS TIME AND DENIES ANY PAIN. RESPIRATIONS EVEN AND UNLABORED ON ROOM AIR. IV SITE PATENT WITH NO SIGNS OF ERYTHEMA OR SWELLING WITH IV FLUIDS INFUSING. BEDSIDE COMMODE PRESENT. CALL LIGHT WITHIN REACH. WILL ENDORSE TO ONCOMING SHIFT.
--- NOTE | 2019-04-08 19:10 | NUR ---
RECEIVED PT FROM PREVIOUS SHIFT NURSE. PT AOX4, DENIES CP/PRESSURE. MED SUG PT, DENIES CP/PRESSURE. DENIES SOB/DIFFICULTY BREATHING, ON RA. IV TO RFA, INTACT AND PATENT. BED IN LOWEST POSITION. CALL LIGHT WITHIN REACH. WILL CONTINUE TO MONITOR.
[2019-04-08 20:09] VITALS: BP 138/61
--- NOTE | 2019-04-09 03:30 | NUR ---
PT RESTING IN BED. RR EVEN AND UNLABORED. IN NO ACUTE DISTRESS. CALL LIGHT WITHIN REACH. BED IN LOWEST POSITION. WILL CONTINUE TO MONITOR.
[2019-04-09 05:28] VITALS: BP 156/72
[2019-04-09 06:23] LABS: BASOPHIL % 0.4 % (0-2); PLATELET COUNT 304 x10^3mcL (130-400); RED CELL DISTRIBUTION WIDTH 13.1 % (11.5-14.5)
[2019-04-09 06:38] LABS: CALCIUM 7.2 mg/dL (8.5-10.1); CARBON DIOXIDE 25.7 mmol/L (21-32); CHLORIDE SERUM 97 mmol/L (98-107); CREATININE SERUM 1.3 mg/dL (0.6-1.0); GLUCOSE SERUM 287 mg/dL (74-106); POTASSIUM SERUM 3.6 mmol/L (3.5-5.1); SODIUM SERUM 132 mmol/L (136-145)
--- NOTE | 2019-04-09 07:05 | NUR ---
RECEIVED PT FROM NIGHT NURSE. PT IS LAYING DOWN IN BED WITH HOB UP RESTING. PT LOOKS TO BE IN NO ACUTE DISTRESS AT THIS TIME AND DENIES ANY PAIN. IV SITE PATENT WITH NO SIGNS OF ERYTHEMA OR SWELLING WITH IV FLUIDS INFUSING. BEDSIDE COMMODE AT BEDSIDE AND PT TOLD TO TELL NURSE WHEN NEEDING TO USE RESTROOM, PT VERBALIZED UNDERSTANDING. CALL LIGHT WITHIN REACH. WILL CONTINUE TO MONITOR.
[2019-04-09 07:32] LABS: MAGNESIUM 0.8 mg/dL (1.8-2.4)
--- NOTE | 2019-04-09 07:50 | NUR ---
RECEIVED CRITICAL REPORTING FOR POTASSIUM OF 0.8, CONFIRMED POTASSIUM LEVEL AND NOTIFIED DR. [place] OF POTASSIUM LEVEL AND WAS INFORMED TO PUT PT ON TELE. EMAR SHOWED MAGNESIUM LEVEL OF 0.8 AND POTASSIUM LEVEL OF 3.6, CALLED LAB TO CONFIRM CORRECT POTASSIUM AND MAGNESIUM LEVEL, AND LAB CONFIRMED POTASSIUM LEVEL OF 3.6 AND MAGNESIUM LEVEL OF 0.8, INFORMED DR. C[place] OF LAB VALUE, ORDERS RECIEVED. CANCELED TELE MONITORING. WILL CARRY OUT ORDERS RECEIVED.
[2019-04-09 07:57] VITALS: BP 132/90
[2019-04-09 11:50] VITALS: BP 108/67
--- NOTE | 2019-04-09 12:45 | NUR ---
PT STATES AN INCREASE IN APPETITE AND IS REQUESTING TO HAVE MORE OF THE SOUP THAT SHE HAD FOR LUNCH. PT DENIES ANY NAUSEA AND STATES THAT SHE HAS NOT HAD A BM SINCE THIS MORNING. PT STATES FEELING BETTER, WILL CONTINUE TO MONITOR
--- NOTE | 2019-04-09 14:05 | NUR ---
PT BOWEL MOVEMENTS ARE DECREASING. PT HAD BM THIS MORNING, PT HAD ANOTHER BM AND WAS SOFT STOOL AT THIS TIME. WILL CONTINUE TO MONITOR
[2019-04-09 16:02] VITALS: BP 113/61
--- NOTE | 2019-04-09 17:45 | NUR ---
PT APPETITE GOOD, PT STATES THAT SHE DOES NOT LIKE THE SOUP THAT WAS PROVIDED FOR DINNER AND IS REQUESTING A DIFFERENT SOUP SINCE HER APPETITE IS IMPROVING. WILL NOTIFY [facility]
--- NOTE | 2019-04-09 18:26 | NUR ---
PT IS SITTING UP AT THE EDGE OF THE EATING SOUP, PT LOOKS TO BE IN NO ACUTE DISTRESS AT THIS TIME AND DENIES ANY PAIN. IV SITE PATENT WITH NO SIGNS OF ERYTHEMA OR SWELLING WITH IV FLUIDS INFUSING. RESPIRATIONS EVEN AND UNLABORED. CALL LIGHT WITHIN REACH. WILL ENDORSE TO ONCOMING SHIFT.
--- NOTE | 2019-04-09 19:10 | NUR ---
RECEIVED PT FROM PREVIOUS SHIFT NURSE. PT AOX4, DENIES CP/PRESSURE. MED SURG PT, DENIES CP/PRESSURE. DENIES SOB/DIFFICULTY BREATHING, ON RA. IV TO RFA, INTACT AND PATENT. BED IN LOWEST POSITION. WILL CONTINUE TO MONITOR.
[2019-04-09 19:53] VITALS: BP 124/65
--- NOTE | 2019-04-10 02:45 | NUR ---
PT RESTING IN BED. RR EVEN AND UNLABORED. IN NO ACUTE DISTRESS. CALL LIGHT WITHIN REACH. BED IN LOWEST POSITION. WILL CONTINUE TO MONITOR.
[2019-04-10 05:39] VITALS: BP 131/71
--- NOTE | 2019-04-10 07:43 | NUR ---
PATIENT RESTING COMFORTABLY IN BED, NO ACUTE DISTRESS NOTED. PATIENT DENIES NAUSEA & VOMITTING AT THIS TIME. DENIES ABDOMINAL PAIN. PATIENT STATES PREVIOUS STOOLS WERE LOOSE, NONE NOTED AT THIS TIME. GENERALIZED WEAKNESS NOTED. NS IV INFUSING TO RFA AT 70 ML/HR, IV SITE CDI& PATENT, NO S/S OF INFILTRATION. CALL LIGHT WITHIN REACH, BED IN LOW POSITION WILL CONTINUE TO MONITOR.
[2019-04-10 08:38] VITALS: BP 114/63
[2019-04-10 12:38] VITALS: BP 114/63
--- NOTE | 2019-04-10 12:40 | NUR ---
PATIENT RESTING IN BED COMFORTABLY, EATING. PATIENT TOLERATING MEAL. PATIENT DENIES NAUSEA & VOMITTING. ALL NEEDS MET AT THIS TIME. WILL CONTINUE TO MONITOR.
--- NOTE | 2019-04-10 13:34 | NUR ---
PHYSICAL THERAPY DAILY NOTES CO-SIGN All documentation done by the Belt Measurer for 04/10/19 has been reviewed. I agree with the documentation. Reviewed/Co-Signed by: Jessica Lovell PT Documentation Done by: SYDNEY NUÑEZ PTA
--- NOTE | 2019-04-10 13:48 | NUR ---
PATIENT IS TO BE DISCHARGED HOME TODAY. PATIENT RECEIVED COPY OF DISCHARGE INSTRUCTIONS, PATIENT UNDERSTANDS AND AGREES WITH D/C INSTRUCTIONS & PLAN OF CARE, INCLUDING FOLLOW UP WITH PCP & MEDICATIONS. ALL QUESTIONS AND CONCERNS ADDRESSED. IV TO RFA REMOVED, CATH INTACT. ARMBANDS REMOVED.
== END 2019-04-10 14:03 | disposition home or self-care (01) | DRG 392 ==
LOC: ED 17:44 → MU 04-08 00:06
PROVIDERS: Emergency Medicine; ADMIT Internal Medicine Pulmonary Disease
DX: K52.9 Noninfective gastroenteritis and colitis, unspecified (principal); N39.0 Urinary tract infection, site not specified; E87.1 Hypo-osmolality and hyponatremia; K22.10 Ulcer of esophagus without bleeding; E86.0 Dehydration; E11.43 Type 2 diabetes mellitus with diabetic autonomic (poly)neuropathy; K31.84 Gastroparesis; E87.6 Hypokalemia; E83.42 Hypomagnesemia; R54 Age-related physical debility; I10 Essential (primary) hypertension
CPT/HCPCS: 82962; 97112-GP; 97116-GP; 97530-GP; C9113; G0378; J1815; J1956; J2405; J2765; J3010; J3475; J3480; J7030; J7050; J8597

== ENCOUNTER 2019-05-01 15:54 | Emergency (ER) | payer OTHER ==
[~2019-05-01] VITALS: Ht 157.5 cm; Wt 68.0 kg
[~2019-05-01 15:54] MED LIST changes: +BACLOFEN10 MG PO; +CALCIUM 600600 M3 PO; +LEVOFLOXACIN500 M1 PO
[2019-05-01 15:59] VITALS: Ht 157.5 cm; Wt 68.0 kg
[2019-05-01 17:03] LABS: PLATELET COUNT 241 x10^3mcL (130-400); RED CELL DISTRIBUTION WIDTH 13.6 % (11.5-14.5)
[2019-05-01 17:11] LABS: CALCIUM 8.2 mg/dL (8.5-10.1); CARBON DIOXIDE 24.5 mmol/L (21-32); CHLORIDE SERUM 105 mmol/L (98-107); CREATININE SERUM 1.6 mg/dL (0.6-1.0); GLUCOSE SERUM 135 mg/dL (74-106); POTASSIUM SERUM 4.7 mmol/L (3.5-5.1); SODIUM SERUM 139 mmol/L (136-145)
[2019-05-01 17:18] LABS: ALBUMIN 3.4 g/dL (3.4-5.0); ALKALINE PHOSPHATASE 76 U/L (46-116); ALT/SGPT 14 U/L (14-59); AST/SGOT 14 U/L (15-37); BILIRUBIN TOTAL 0.3 mg/dL (0.20-1.00); TOTAL PROTEIN, SERUM 6.6 g/dL (6.4-8.2)
[2019-05-01 19:38] VITALS: BP 117/55
== END 2019-05-01 19:38 | disposition home or self-care (01) ==
LOC: ED 15:54
PROVIDERS: Emergency Medicine
DX: E86.0 Dehydration (principal); I95.9 Hypotension, unspecified; Z88.0 Allergy status to penicillin; E11.9 Type 2 diabetes mellitus without complications; Z88.1 Allergy status to other antibiotic agents; Z88.2 Allergy status to sulfonamides
CPT/HCPCS: J7030